=== PATIENT | male | born 1930 | race Caucasian/White ===

== ENCOUNTER 2017-10-06 15:58 | Inpatient (IN) | payer OTHER ==
--- NOTE | 2017-10-06 15:55 | EDPHY ---
H & P Time Seen by Provider: 10/06/17 16:02 Constitutional: Initial Vital Signs Temperature (C) 36.9 C 10/06/17 15:58 Heart Rate 68 10/06/17 15:58 Respiratory Rate 16 10/06/17 15:58 Blood Pressure 174/84 H 10/06/17 15:58 O2 Sat (%) 93 10/06/17 15:58 O2 Delivery Mode Room Air Allergies/Adverse Reactions: sulindac Allergy (Verified 10/06/17 16:14) Home Medications: Medication Instructions Recorded Advair 100/50 (*) 10/06/17 Cyclobenzaprine 10/06/17 Flomax 10/06/17 Losartan Potassium 10/06/17 Boone 5/325 (*) 10/06/17 Proventil Neb 10/06/17 Tylenol 10/06/17 Medical Decision Making - Diagnostics Imaging: Discussed imaging studies w/ call centre supervisor Radiologist, I viewed and interpreted images myself ED Course/Re-evaluation: CHIEF COMPLAINT: Left hip pain HISTORY OF PRESENT ILLNESS: The patient is an 87 y/o male with a recent history of bilateral hip replacement , metastatic prostate cancer, and a recent left hip fracture arriving via EMS complaining of worsening left hip pain. On Monday, 6 days ago, he was diagnosed with a left hip fracture. Today while at rehab he was transferring his weight from one side to the other when he heard a popping sound from his left hip. They re-imaged the hip and saw a displaced left intertrochanteric fracture. Denies chest pain, shortness of breath, abdominal pain, urinary or bowel complaints, fever. He last ate breakfast including 1/2 a cup of raisin bran. REVIEW OF SYSTEMS: A 10 point review of systems was performed and is negative with the exception of the elements mentioned in the history of present illness. PHYSICAL EXAM: HR, BP, O2 Sat, RR. Temp noted General Appearance: Alert, well hydrated, appropriate, and non-toxic appearing. Head: Atraumatic without scalp tenderness or obvious injury Eyes: Pupils equal, round, reactive to light and accommodation, EOMI, no trauma , no injection. Ears: Clear bilaterally, no perforation, normal landmarks Nose: Atraumatic, no rhinorrhea, clear. Throat: There is no erythema or exudates, no lesions, normal tonsils, mucus membranes moist. Neck: Supple, nontender, no lymphadenopathy. Respiratory: No retractions, no distress, no wheezes, and no accessory muscle use. Lungs are clear to auscultation bilaterally. Cardiovascular: Regular rate and rhythm, no murmurs, rubs, or gallops. Bilateral carotid, radial, dorsalis pedis, and posterior tibial pulses intact. Good capillary refill all extremities. Gastrointestinal: Abdomen is soft, nontender, non-distended, no masses, no rebound, no guarding, no peritoneal signs. Musculoskeletal: Left hip tenderness with decreased ROM secondary to pain. Neurological: Alert, appropriate, and interactive. The patient has normal DTRs and non-focal cranial nerves, motor, sensory, and cerebellar exam. Skin: No rashes, good turgor, no nodules on palpation. Past medical history: Metastatic prostate cancer, left intertrochanteric fracture, CHF, hypertension Past surgical history: Bilateral hip replacement Family history: Denies Social history: Lives at [facility], retired, single DIAGNOSTICS/PROCEDURES/CRITICAL CARE TIME: Pelvic and lower extremity CT: Pathologic left intertrochanteric fracture. There is looseness around the prosthesis. DIFFERENTIAL DIAGNOSIS: The differential diagnosis for the patient's hip injury included but was not limited to fracture, ligamentous injury, contusion, muscular strain. MEDICAL DECISION MAKING: The patient is an 87 y/o male with a recent history of a metastatic prostate cancer, left hip fracture arriving via EMS presenting with worsening left hip pain and an intertrochanteric fracture. On exam he has left hip tenderness with decreased ROM secondary to pain. Pelvic and lower extremity CT, labs ordered. 1719: I reviewed patient's CT scans. 1720: Consulted with Dr. Gonzalez, orthopedic surgeon, regarding this patient. He agrees to follow this patient during his admission. 1723: Consulted with Dr. Dodd, hospitalist, who agrees to admit this patient for his pathologic left hip fracture. 1733: Spoke with Dr. Daigle, radiologist, regarding patient's CT findings. There is looseness around the prosthesis in addition to the fracture. 1740: Reassessed patient and discussed imaging findings. He is comfortable with plan for admission. - Data Points Laboratory Results: Laboratory Results 10/06/17 16:20 10/06/17 16:20 10/06/17 10/06/17 10/06/17 16:20 16:20 16:20 WBC 8.73 10^3/uL 10^3/uL (3.80-9.50) RBC 3.97 10^6/uL L 10^6/uL (4.40-6.38) Hgb 12.8 g/dL L g/dL (13.7-17.5) Hct 38.2 % L % (40.0-51.0) MCV 96.2 fL fL (81.5-99.8) MCH 32.2 pg pg (27.9-34.1) MCHC 33.5 g/dL g/dL (32.4-36.7) RDW 12.8 % % (11.5-15.2) Plt Count 219 10^3/uL 10^3/uL (150-400) MPV 9.9 fL fL (8.7-11.7) Neut % (Auto) 72.5 % % (39.3-74.2) Lymph % (Auto) 15.0 % % (15.0-45.0) Cataño % (Auto) 8.6 % % (4.5-13.0) Eos % (Auto) 3.0 % % (0.6-7.6) Baso % (Auto) 0.7 % % (0.3-1.7) Nucleat RBC Rel Count 0.0 % % (0.0-0.2) Absolute Neuts (auto) 6.33 10^3/uL 10^3/uL (1.70-6.50) Absolute Lymphs (auto) 1.31 10^3/uL 10^3/uL (1.00-3.00) Absolute Monos (auto) 0.75 10^3/uL 10^3/uL (0.30-0.80) Absolute Eos (auto) 0.26 10^3/uL 10^3/uL (0.03-0.40) Absolute Basos (auto) 0.06 10^3/uL 10^3/uL (0.02-0.10) Absolute Nucleated RBC 0.00 10^3/uL 10^3/uL (0-0.01) Immature Gran % 0.2 % % (0.0-1.1) Immature Gran # 0.02 10^3/uL 10^3/uL (0.00-0.10) PT 14.5 SEC SEC (12.0-15.0) INR 1.11 (0.83-1.16) APTT 38.3 SEC H SEC (23.0-38.0) Sodium 136 mEq/L mEq/L (135-145) Potassium 4.3 mEq/L mEq/L (3.3-5.0) Chloride 100 mEq/L mEq/L (97-110) Carbon Dioxide 25 mEq/l mEq/l (22-31) Anion Gap 11 mEq/L mEq/L (8-16) BUN 25 mg/dL H mg/dL (7-23) Creatinine 1.2 mg/dL mg/dL (0.7-1.3) Estimated GFR 57 Glucose 98 mg/dL mg/dL (70-100) Calcium 9.2 mg/dL mg/dL (8.5-10.4) Total Bilirubin 0.7 mg/dL mg/dL (0.1-1.4) Conjugated Bilirubin 0.5 mg/dL mg/dL (0.0-0.5) Unconjugated Bilirubin 0.2 mg/dL mg/dL (0.0-1.1) AST 25 IU/L IU/L (17-59) ALT 18 IU/L L IU/L (21-72) Alkaline Phosphatase 58 IU/L IU/L (38-126) Total Protein 6.8 g/dL g/dL (6.3-8.2) Albumin 3.5 g/dL g/dL (3.5-5.0) Lipase 11 IU/L L IU/L (23-300) Departure - Departure Disposition: [facility] Acute Clinical Impression: Hip fracture, left Qualifiers: Encounter type: initial encounter Fracture type: closed Qualified Code(s): S72.002A - Fracture of unspecified part of neck of left femur, initial encounter for closed fracture Condition: Fair Referrals: Patient,NotPresent [Unknown] - As per Instructions Report Scribed for: Db Petit Report Scribed by: Samantha Baker Date of Report: 10/06/17 Time of Report: 16:30
[2017-10-06 16:42] LABS: PLATELET COUNT 219 10^3/uL (150-400)
[2017-10-06 16:46] LABS: INR 1.11 (0.83-1.16); PROTIME(PATIENT) 14.5 SEC (12.0-15.0)
--- NOTE | 2017-10-06 18:48 | GCON ---
[f rep st] CONSULTATION DATE OF CONSULTATION: 10/06/2017 REASON FOR CONSULTATION: Left hip pain. HISTORY RELATIVE TO CONSULTATION: The patient is an 87-year-old limited ambulator with a history of a left total hip arthroplasty in the early . The patient has been having intermittent pain incr easing in frequency, but on the whole has been doing okay. He states that his left hip twisted while at [facility] precipitating an increase in pain. He is having difficulty ambulating secondary to hi s pain. PHYSICAL EXAMINATION: On examination, he holds his hip in slightly outwardly rotated position. His limb lengths and rotation are relatively symmetric. He has pain with flexion of his hip as well as o utward rotation. IMAGING: CT scan demonstrates a previous total hip arthroplasty. There is significant lucency proxi layla with what appears to be a new fracture of the lesser trochanter. ASSESSMENT: 1. Left periprosthetic fracture. 2. Left femoral stem lucency. PLAN: With his history of prostate cancer, it is quite possible that the lucency is from metastases. His family member states that he did have a biopsy previously, which was inconclusive. 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 From a nonoperative standpoint, "letting th is settled down," in hopes of a new fracture becoming less symptomatic would be an option. That micky nails said, his stem appears loose; and, ultimately if symptoms warrant, a revision total hip arthroplast y with a longer stem implant would be the option. Acutely, it is recommended that he limit his weigh t bearing in hopes that this settles down. /[id number]/MODL
[2017-10-06] MEDS ORDERED: ONDANSETRON 4 MG/2 ML VIAL IVP PRN (18:52)
[2017-10-06] MEDS ORDERED: ONDANSETRON DISINTEGRATING 4 MG TAB PO PRN (18:52)
[2017-10-06] MEDS ORDERED: traMADol 50 MG TAB PO PRN (18:52)
[2017-10-06] MEDS ORDERED: ALBUTEROL 60 PUFFS/8 GM MDI IH PRN (18:54)
[2017-10-06] MEDS: ACETAMINOPHEN 500 MG TAB PO SCH ×2 (21:07→23:21)
[2017-10-06] MEDS: CYCLOBENZAPRINE 10 MG TAB PO PRN (21:07)
[2017-10-06] MEDS: FLUTICASONE/SALMETER 250/50MCG DISKUS IH SCH (21:09)
--- NOTE | 2017-10-06 21:29 | GHP ---
[f rep st] HISTORY AND PHYSICAL DATE OF ADMISSION: 10/06/2017 CHIEF COMPLAINT: Left hip pain. HISTORY OF PRESENT ILLNESS: The patient is an 87-year-old male, with a history of bilateral total hi p arthroplasties performed back in the s, who presents to the emergency department with left hip pa in. He underwent revision of his left hip arthroplasty 4 years after the initial surgery. Since laura t time, he has done fairly well. However, approximately 1 week ago, he states he tripped in his kitc hen and suffered a fall onto his left hip. He was admitted to [facility] and both x-ray and C T scans were performed, which showed an abnormality suspicious for possible osteolytic disease. He s tates a biopsy of the bone was obtained, which was negative for a metastatic process. He was then di [facility]arged [facility] [place]. Today, while simply shifting his weight with therapy, he felt a pop in his left hip and is now suffering from increased pain and muscle spasms. Orthopedic Surgery was consult was obtained in the emergency department and no immediate plans are made for surgery. Ho wever, it is possible he may need a longer stem implant as it appears the current stem may be loose. He will be admitted to the ortho unit and Orthopedic Surgery will continue to follow. PAST MEDICAL HISTORY: 1. Metastatic prostate cancer. 2. Left intertrochanteric fracture. 3. History of heart failure. 4. Hypertension. PAST SURGICAL HISTORY: Bilateral hip replacement with left hip revision, all done in the . FAMILY HISTORY: Reviewed and not pertinent. SOCIAL HISTORY: The patient is currently staying at [facility]. He retired. He denies tobacco or a lcohol use. MEDICATIONS: Please see [employer]-completed outpatient medication list. ALLERGIES: He has allergy to Sulindac. REVIEW OF SYSTEMS: A 10-point review of systems is performed, negative except as per HPI. OBJECTIVE: VITAL SIGNS: Temperature 36.8, blood pressure 137/68, heart rate 66, respiratory rate 16 ; he is 90% on room air. GENERAL: Patient is awake, alert, and oriented, in no acute distress. ALINE NT EXAM: Head is atraumatic, normocephalic. Pupils equal, round, react to light. Extraocular movem ents intact. Oropharynx is clear. Mucous membranes are moist. NECK: Supple. There is no JVD. HE ART: Has regular rate and rhythm without murmur. LUNGS: Clear to auscultation bilaterally. ABDOME N: Soft, nondistended, obese, nontender. Normoactive bowel sounds are present. EXTREMITIES: He payne s 1+ bilateral pitting lower extremity edema. NEUROLOGIC EXAM: Grossly nonfocal. LABORATORY DATA: CBC reveals normal white count, hemoglobin 12.8, platelets are 219. INR is 1.11. Basic metabolic panel reveals normal electrolytes, BUN 25, creatinine 1.2. LFTs are normal. Lipase is normal. Pelvis CT shows a pathologic fracture in the intertrochanteric region of the left hip with underlying left total hip arthroplasty as well as an underlying lucent lesion in the intertrochanteric region o f the left hip, which is atypical for prostate carcinoma; loosening or infection could be considered per radiology report. ASSESSMENT AND PLAN: The patient is an 87-year-old male with history of bilateral total hip arthropl asties. He is admitted to the hospital with increasing left hip pain, possibly related to a loose st em in his left hip hardware one week after a fall. 1. Periprosthetic fracture of the left hip. Appreciate Orthopedic Surgery consultation. The plan, for now, is to see if his symptoms improve and, if not, he may undergo surgery for a longer stem impl ant as it seems this stem may be loose, possibly contributing to his symptoms of pain. It is recomme nded he limit weightbearing at this time. We will hold off on PT, OT evaluations until cleared by Or thopedic Surgery. As it does not sound like there is a plan for immediate surgery, patient will be g iven a regular diet, pain control with high-dose scheduled Tylenol, p.r.n. oxycodone, and Flexeril fo r muscle spasms. 2. Hypertension. He was a bit hypertensive on arrival, though currently normotensive. We will cont inue his home losartan. 3. Benign prostatic hypertrophy. Continue Flomax. 4. Asthma. No evidence of acute exacerbation. Continue Advair and p.r.n. albuterol. 5. History of metastatic prostate cancer. A recent bone biopsy of the left femoral stem lucency, do ne at [facility], was negative for metastatic disease. We will need to obtain records to veri fy that and also consider Oncology consult. 6. Deep venous thrombosis prophylaxis. The patient is high risk. Will start Lovenox, which should be held if plans for surgery are made. CODE STATUS: 1. Patient is full code. DISPOSITION: Patient admitted to inpatient status as I anticipate he will require greater than 48 ho urs hospitalization for ongoing management of his periprosthetic hip fracture and acute pain. /[id number]/MODL
[2017-10-06] MEDS: TAMSULOSIN HCL 0.4 MG CAP PO SCH (23:21)
[2017-10-06] MEDS: PATCH REMOVAL 1 EA PATCH TD SCH (23:21)
[2017-10-07] MEDS: oxyCODONE IR 5 MG TAB PO PRN ×2 (05:18→21:25)
[2017-10-07] MEDS: CYCLOBENZAPRINE 10 MG TAB PO PRN ×2 (05:18→21:25)
--- NOTE | 2017-10-07 07:52 | PDMN ---
Medical Necessity Medical necessity: GRG Musculoskeletal disease- periprosthetic fracture of L hip poss sgy pending, PT will receive PT,OT awaiting further eval of hip fx. pt is 87 with hx met. prostate Ca., - anticipate > 2 MN ongoing med nec care.
[2017-10-07] MEDS: FLUTICASONE/SALMETER 250/50MCG DISKUS IH SCH ×2 (09:48→21:38)
[2017-10-07] MEDS: LIDOCAINE 4%/MENTHOL 1% PATCH TD SCH (10:18)
[2017-10-07] MEDS: ENOXAPARIN 40 MG/0.4 ML SYR SC SCH (10:18)
[2017-10-07] MEDS: ACETAMINOPHEN 500 MG TAB PO SCH ×3 (10:19→21:25)
[2017-10-07] MEDS: TAMSULOSIN HCL 0.4 MG CAP PO SCH ×2 (10:21→21:23)
[2017-10-07] MEDS: LOSARTAN POTASSIUM 50 MG TAB PO SCH (10:21)
--- NOTE | 2017-10-07 10:44 | HOSPPROG ---
Hospitalist Progress Note Assessment/Plan: 87y male with c/o hip pain. First encounter, chart reviewed. #Periprosthetic left hip fx -wait -conservative care for now -appreciate Dr Gonzalez consult -suspect he will end up needing surgery #Pain -cont muscle relaxers -support #HTN -stable -no changes currently #Hx met prostate CA -no intervention #Asthma -stable -cont advair #Dispo -unclear -will need supportive care in hospital -possible surgery Subjective: Still having pain in left hip. Feels better then yesterday. Objective: Vital Signs Temp Pulse Resp BP Pulse Ox 36.9 C 64 16 143/70 H 96 10/07/17 08:00 10/07/17 08:00 10/07/17 08:00 10/07/17 08:00 10/07/17 08:00 10/06/17 10/07/17 10/08/17 05:59 05:59 05:59 Intake Total 150 Output Total 500 Balance -500 150 PT 14.5 SEC (12.0-15.0) 10/06/17 16:20 INR 1.11 (0.83-1.16) 10/06/17 16:20 - Physical Exam Constitutional: appears nourished, obese, uncomfortable Eyes: PERRL, anicteric sclera, EOMI Ears, Nose, Mouth, Throat: moist mucous membranes, hearing normal, ears appear normal Cardiovascular: No JVD, No tachycardia, No edema Respiratory: no respiratory distress, no rales or rhonchi, reduced air movement Gastrointestinal: normoactive bowel sounds, No tenderness, No ascites Skin: warm, normal color, No mottled Musculoskeletal: joint tenderness, pain with ROM, generalized weakness Neurologic: AAOx3 Psychiatric: interacting appropriately, not anxious, not encephalopathic, thought process linear ICD10 Worksheet Patient Problems: Problems Problem Status Onset Hip fracture, left Acute
--- NOTE | 2017-10-07 18:16 | ASMTCMCOM ---
CM Note CM Note Notes: Reviewed chart. Pt admitted from [facility] for hip pain. Pt diagnosed with a left hip fracture. History includes prostate cancer, heart failure, HTN, bilat hip replacement. Pt is retired and lives alone. Pt has been at [facility] jail rehab for the past week. Approximately one week prior to admit he tripped in his kitchen and fell. He was seen and treated at [facility]. Discharge needs remain unclear. Anticipate pt will likely return to [facility] for additional rehab when medically stable. CM will continue to follow. Current Discharge Plan: [facility] SNF Date Signed: 10/07/2017 06:15 PM Electronically Signed By:Hafsa Leon RN
--- NOTE | 2017-10-07 20:54 | SOAPPROG ---
SOAP Progress Note Assessment/Plan: Assessment: L lesser trochanter (periprosthetic) fx Pain some better today, worse with movement Tender L groin Pain with hip ROM Plan: Hopefully acute fracture will "settle down" from a pain standpoint SNF transfer when ready If symptoms persist , revision MIGUELINA option 10/07/17 20:51 Objective: Vital Signs Temp Pulse Resp BP Pulse Ox 36.8 C 68 18 152/57 H 94 10/07/17 19:28 10/07/17 19:28 10/07/17 19:28 10/07/17 19:28 10/07/17 19:28 10/06/17 10/07/17 10/08/17 05:59 05:59 05:59 Intake Total 450 Output Total 500 400 Balance -500 50 PT 14.5 SEC (12.0-15.0) 10/06/17 16:20 INR 1.11 (0.83-1.16) 10/06/17 16:20 ICD10 Worksheet Patient Problems: Problems Problem Status Onset Hip fracture, left Acute
[2017-10-07] MEDS: PATCH REMOVAL 1 EA PATCH TD SCH (21:26)
[2017-10-08] MEDS: LIDOCAINE 4%/MENTHOL 1% PATCH TD SCH (09:48)
[2017-10-08] MEDS: ACETAMINOPHEN 500 MG TAB PO SCH ×3 (09:49→22:53)
[2017-10-08] MEDS: TAMSULOSIN HCL 0.4 MG CAP PO SCH ×2 (09:50→20:19)
[2017-10-08] MEDS: LOSARTAN POTASSIUM 50 MG TAB PO SCH (09:50)
[2017-10-08] MEDS: ENOXAPARIN 40 MG/0.4 ML SYR SC SCH (09:50)
[2017-10-08] MEDS: FLUTICASONE/SALMETER 250/50MCG DISKUS IH SCH ×2 (09:53→21:38)
[2017-10-08] MEDS ORDERED: LACTULOSE 20 GM/30 ML UDCUP PO PRN (10:51)
[2017-10-08] MEDS ORDERED: POLYETHYLENE GLYCOL 3350 17 GM PKT PO PRN (10:51)
[2017-10-08] MEDS ORDERED: BISACODYL 10 MG SUPP PR PRN (10:51)
[2017-10-08] MEDS ORDERED: MAGNESIUM HYDROXIDE 30 ML UDCUP PO PRN (10:51)
[2017-10-08] MEDS: SENNOSIDES/DOCUSATE SODIUM TAB PO SCH ×2 (12:08→20:19)
--- NOTE | 2017-10-08 13:12 | HOSPPROG ---
Hospitalist Progress Note Assessment/Plan: 87y male with c/o hip pain. D/W Dr Gonzalez. #Periprosthetic left hip fx -pt wants surgery, D/W Dr Gonzalez, will have to be done at the [facility] -transfer pt to [facility] #Pain -cont muscle relaxers -support #HTN -stable -no changes currently #Hx met prostate CA -no intervention #Asthma -stable -cont advair #Dispo -D/W Daughter, will transfer pt to [facility] for surgical intervention -D/W CM -anticipate Monday Subjective: Pain ok. Unable to move without significant pain. Requesting surgery. Objective: Vital Signs Temp Pulse Resp BP Pulse Ox 36.9 C 67 17 124/52 H 94 10/08/17 12:00 10/08/17 12:00 10/08/17 12:00 10/08/17 12:00 10/08/17 12:00 10/07/17 10/08/17 10/09/17 05:59 05:59 05:59 Intake Total 650 Output Total 500 1225 200 Balance -500 -575 -200 PT 14.5 SEC (12.0-15.0) 10/06/17 16:20 INR 1.11 (0.83-1.16) 10/06/17 16:20 - Physical Exam Constitutional: no apparent distress, obese, uncomfortable Eyes: PERRL, anicteric sclera, EOMI Ears, Nose, Mouth, Throat: moist mucous membranes, hearing normal, ears appear normal Cardiovascular: edema, No JVD, No tachycardia Respiratory: no respiratory distress, no rales or rhonchi, reduced air movement Gastrointestinal: normoactive bowel sounds, No tenderness, No ascites, No guarding Skin: warm, normal color, No mottled Musculoskeletal: joint tenderness, pain with ROM, muscular tenderness, generalized weakness Neurologic: AAOx3 Psychiatric: interacting appropriately, not anxious, not encephalopathic, thought process linear ICD10 Worksheet Patient Problems: Problems Problem Status Onset Hip fracture, left Acute
[2017-10-08] MEDS: CYCLOBENZAPRINE 10 MG TAB PO PRN (17:31)
--- NOTE | 2017-10-08 19:14 | ASMTCMCOM ---
PORFIRIO Note CM Note Notes: Reviewed chart, spoke with Zena Boyd NP and Flor RN. Per Zena, pt unwilling to return to [facility] following discharge. Pt believes [facility] was responsible for his current fractures. Per Zena, pt in need of surgery; case discussed further with Dr. Gonzalez. Decision made for pt to transfer to [facility] for orthopedic surgery. Current surgical needs fall outside scope of [facility] practice. Without intervention pt has a poor prognosis for healing and recovery. Met with pt to discuss plan of care. Pt adament about having surgery. Pt recognizes his poor prognosis and fears his own mortality. Pt very teary, recounting his "amazing life and his wonderful ." The pt very emotional during conversation. Support and reassurance provided. Met with pt's dghtlula Matos and son-in-law Tad. Updates provided. Family in support of surgery. Pt and family refusing to return to [facility]. Family wishes for pt to transfer to [facility] following discharge from [facility]. Dghtr Shawna requesting CM alert [facility]. Pt previously turned away d/t to lack of bed availability. Call placed to TOYA Rouse at [facility]. Padma alerted to request. Referral sent for [facility] to keep pt on their radar for next couple of weeks. Call received from darin Freitas to transfer to [facility] Monday or Monday. Call received from Theresa at [facility] (doc line specialist) . Per Theresa, [facility] is out of pt's insurance network. Dr. Chávez (orthopedist) has agreed to accept pt for surgery on Monday10/10/17, but [facility] will need to obtain insurance auth from [employer] on Monday10/09/17 on pt's behalf. Per Theresa, insurance auth is [facility] responsibility secondary to hospital being unable to provide surgical options. ALEXIS Munoz, advertising campaign manager of CM and UR team for follow up on Monday. CM to call Annmarie at [facility] with update and for coordination of transfer on Monday. Discharge plan remains unclear. CM will continue to follow. Current Discharge Plan: Transfer to [facility] for orthopedic surgery Date Signed: 10/08/2017 07:08 PM Electronically Signed By:Hafsa Leon RN
[2017-10-08] MEDS: PATCH REMOVAL 1 EA PATCH TD SCH (20:19)
[2017-10-08] MEDS ORDERED: SENNOSIDES/DOCUSATE SODIUM TAB PO SCH (21:00)
--- NOTE | 2017-10-09 06:25 | SOAPPROG ---
MEKHI Progress Note Assessment/Plan: Assessment: L lesser trochanter (periprosthetic) fx Pain some better today, worse with movement Tender L groin Pain with hip ROM Plan: Hopefully acute fracture will "settle down" from a pain standpoint SNF transfer when ready If symptoms persist , revision MIGUELINA option 10/07/17 20:51 10/09/17 06:24 Con't pain L hip limiting ability to get OOB Transfer arranged to [facility] Dr. Chávez for revision MIGUELINA pending insurance authorization Objective: Vital Signs Temp Pulse Resp BP Pulse Ox 36.9 C 67 16 141/75 H 95 10/09/17 00:00 10/09/17 00:00 10/09/17 00:00 10/08/17 15:43 10/09/17 00:00 10/08/17 10/09/17 10/10/17 05:59 05:59 05:59 Intake Total 650 150 Output Total 1225 525 Balance -575 -375 PT 14.5 SEC (12.0-15.0) 10/06/17 16:20 INR 1.11 (0.83-1.16) 10/06/17 16:20 ICD10 Worksheet Patient Problems: Problems Problem Status Onset Hip fracture, left Acute
[2017-10-09 07:58] VITALS: BP 136/70
[2017-10-09] MEDS: LOSARTAN POTASSIUM 50 MG TAB PO SCH (09:11)
[2017-10-09] MEDS: TAMSULOSIN HCL 0.4 MG CAP PO SCH (09:11)
[2017-10-09] MEDS: CYCLOBENZAPRINE 10 MG TAB PO PRN (09:11)
[2017-10-09] MEDS: ENOXAPARIN 40 MG/0.4 ML SYR SC SCH (09:13)
[2017-10-09] MEDS: SENNOSIDES/DOCUSATE SODIUM TAB PO SCH (09:13)
[2017-10-09] MEDS: FLUTICASONE/SALMETER 250/50MCG DISKUS IH SCH (09:22)
[2017-10-09] MEDS: ACETAMINOPHEN 500 MG TAB PO SCH (10:09)
--- NOTE | 2017-10-09 11:12 | HOSPPROG ---
Hospitalist Progress Note Assessment/Plan: 87y male with c/o hip pain. Today is my first #Periprosthetic left hip fx -Transfer arranged to [facility] w Dr. Chávez for revision MIGUELINA pending insurance authorization #Pain -cont muscle relaxers -support #HTN -stable -no changes currently #Hx met prostate CA -no intervention #Asthma -stable -cont advair #Dispo -dc today to , they are aware and Dr Cháevz will receive the patient, he will go to room 854. July, his nurse, will call report to the nurse at . Subjective: Pawel is anxious to be dc today. Objective: Vital Signs Temp Pulse Resp BP Pulse Ox 36.7 C 64 18 136/70 H 94 10/09/17 07:57 10/09/17 07:57 10/09/17 07:57 10/09/17 09:11 10/09/17 07:57 10/08/17 10/09/17 10/10/17 05:59 05:59 05:59 Intake Total 650 150 Output Total 1225 525 300 Balance -575 -375 -300 PT 14.5 SEC (12.0-15.0) 10/06/17 16:20 INR 1.11 (0.83-1.16) 10/06/17 16:20 - Physical Exam Constitutional: not in pain, chronically ill appearing, obese Eyes: PERRL Ears, Nose, Mouth, Throat: hearing normal Cardiovascular: regular rate and rhythym Respiratory: no respiratory distress Skin: warm Musculoskeletal: other (left leg slightly shortened and ext rotated.) Neurologic: AAOx3 Psychiatric: interacting appropriately ICD10 Worksheet Patient Problems: Problems Problem Status Onset Hip fracture, left Acute
[2017-10-09] MEDS: LIDOCAINE 4%/MENTHOL 1% PATCH TD SCH (11:28)
--- NOTE | 2017-10-09 13:22 | GDS ---
[f rep st] DISCHARGE SUMMARY DISCHARGE DIAGNOSES: 1. Periprosthetic left hip fracture. 2. Pain due to this. 3. Hypertension. 4. History of metastatic prostate cancer. 5. Asthma. CONSULTATION: Dr. Gonzalez. BRIEFLY: Pawel Oliveira is an 87-year-old gentleman with a history of bilateral total hip arthroplasties performed in the s. He presented to the emergency department with left hip pain. He underwent a revision of his left hip arthroplasty 4 years after the initial surgery. Since then, he has done pretty well. Approximately a week ago he tripped in his kitchen, suffered a fall onto his left hip. At that time, he was admitted to [facility] and both x-ray and CT scan were performed, which showed an abnormality suspicious for possibly osteolytic disease. Per the patient in, the biopsy of the bone was obtained, was negative for metastatic process and he was [facility]. Prior to this admission he was shifting his weight when he felt a pop out of his left hip. He was seen and evaluated by Dr. Gonzalez. His recommendation was for the patient to go to [facility] and further follow up with Dr. Chávez. I have spoken with the [facility] today. He will go to their orthopedic unit, room 854 and get further care there. HOSPITAL COURSE FOR PROBLEM: 1. Periprosthetic left hip fracture. He will be transferred to [facility] with Dr. Chávez for revision of the MIGUELINA. 2. Pain. Continue muscle relaxers. Overall well controlled. 3. Hypertension, stable. 4. History of metastatic prostate cancer, on no treatment at this time. 5. Asthmatic. Resumed his Advair. DISCHARGE CONDITION: Stable. Blood pressure is 136/70, respiratory rate is 18 , pulse is 64, temperature 36.7 Celsius, O2 saturation on room air 94%. DISCHARGE INSTRUCTIONS: He will be transferred to [facility] by ambulance because he is unable to walk and he will get further care per Dr. Chávez. Greater than 30 minutes discharging and coordinating his care with [facility]. /[id number]/MODL MTDD
--- NOTE | 2017-10-09 14:14 | ASMTLACE ---
LACE Length of stay for Answers: 3 days current admission Acuity / Level of Answers: Yes Care: Did the patient have an inpatient admission? Comorbidities - select Answers: Any tumor (including all that apply lymphoma or leukemia) Congestive heart failure Other Notes: bilat hip replacement w/ revision, HTN # of Emergency department Answers: 1-2 visits in the last 6 months Score: 12 Date Signed: 10/09/2017 02:13 PM Electronically Signed By:DEMARIO Doherty
--- NOTE | 2017-10-09 14:21 | ASMTCMCOM ---
CM Note CM Note Notes: Pt medically stable for transfer to [place] as he requires a higher level of care, an orthopedic surgery with Dr. Chávez. This morning Zena Hawthorne [phone] with [facility] pt does not need insurance authorization since he requires a higher level of care. [facility] arranges pt transfer, he will be in room 854. Stretcher transport arranged for 1330. Emtala form filled out and copies sent with pt. Copy of pt chart and films sent with pt. RN July report. Pt family updated. Date Signed: 10/09/2017 02:20 PM Electronically Signed By:DEMARIO Doherty
--- NOTE | 2017-10-09 14:23 | ASDISCHSUM ---
Discharge Information Plan Status:Acute Transfer Medically Cleared to Leave: Discharge Date:10/09/2017 01:13 PM CM D/C Disposition:[facility] ADT D/C Disposition:[facility] Projected Discharge Date:10/14/2017 11:00 AM Transportation at D/C:ALS/BLS Discharge Delay Reason: Follow-Up Date:10/14/2017 11:00 AM Discharge Slot: Final Diagnosis: Placement Information Referral Type:*Penitentiary/SNF Referral ID:[id number] Provider Name: Address 1: Phone Number: Address 2: Fax Number: City: [place]: State: Patient Contact Information Contact Name:OMAYRA Relationship:Daughter Address: Work Phone: City: [facility] Phone: [facility] Code: Email: Financial Information Financial Class:Medicare Advantage Plans Primary Plan Desc:[facility] ADVANTAGE PLANS Primary Plan Number:[id number] Secondary Plan Desc: Secondary Plan Number: Assessment Information LACE LACE Length of stay for Answers: 3 days current admission Acuity / Level of Answers: Yes Care: Did the patient have an inpatient admission? Comorbidities - select Answers: Any tumor (including all that apply lymphoma or leukemia) Congestive heart failure Other Notes: bilat hip replacement w/ revision, HTN # of Emergency department Answers: 1-2 visits in the last 6 months Score: 12 Date Signed: 10/09/2017 02:13 PM Electronically Signed By:DEMARIO Doherty [facility] CM Progress Note CM Note CM Note Notes: Reviewed chart. Pt admitted from [facility] for hip pain. Pt diagnosed with a left hip fracture. History includes prostate cancer, heart failure, HTN, bilat hip replacement. Pt is retired and lives alone. Pt [facility]. Approximately one week prior to admit he tripped in his kitchen and fell. He was seen and treated at [facility]. Discharge needs remain unclear. Anticipate pt will likely return to [facility] for additional rehab when medically stable. CM will continue to follow. Current Discharge Plan: [facility] SNF Date Signed: 10/07/2017 06:15 PM Electronically Signed By:Hafsa Leon RN [facility] CM Progress Note CM Note CM Note Notes: Reviewed chart, spoke with Zena Boyd NP and ОЛЕГ Ray. Per Zena, pt unwilling to return to [facility] following discharge. Pt believes [facility] was responsible for his current fractures. Per Zena, pt in need of surgery; case discussed further with Dr. Gonzalez. Decision made for pt to transfer to [facility] for orthopedic surgery. Current surgical needs fall outside scope of [facility] practice. Without intervention pt has a poor prognosis for healing and recovery. Met with pt to discuss plan of care. Pt adament about having surgery. Pt recognizes his poor prognosis and fears his own mortality. Pt very teary, recounting his "amazing life and his wonderful ." The pt very emotional during conversation. Support and reassurance provided. Met with pt's solange Matos and son-in-law Tad. Updates provided. Family in support of surgery. Pt and family refusing to return to [facility]. Family wishes for pt to transfer to [facility] following discharge from [facility]. Solange Matos requesting CM alert [facility]. Pt previously turned away d/t to lack of bed availability. Call placed to TOYA Rouse at [facility]. Padma alerted to request. Referral sent for [facility] to keep pt on their radar for next couple of weeks. Call received from darin Freitas to transfer to [facility] Monday or Monday. Call received from Theresa at [facility] (doc line specialist) . Per Theresa, [facility] is out of pt's insurance network. Dr. Chávez (orthopedist) has agreed to accept pt for surgery on Monday10/10/17, but [facility] will need to obtain insurance auth from [employer] on Monday10/09/17 on pt's behalf. Per Theresa, insurance auth is [facility] responsibility secondary to hospital being unable to provide surgical options. M aline Munoz, catering sales manager of CM and UR team for follow up on Monday. CM to call Annmarie at [facility] with update and for coordination of transfer on Monday. Discharge plan remains unclear. CM will continue to follow. Current Discharge Plan: Transfer to [facility] for orthopedic surgery Date Signed: 10/08/2017 07:08 PM Electronically Signed By:Hafsa Leon RN [facility] CM Progress Note CM Note CM Note Notes: Pt medically stable for transfer to [facility] as he requires a higher level of care, an orthopedic surgery with Dr. Chávez. This morning Zena Hawthorne [phone] with [employer] reports pt does not need insurance authorization since he requires a higher level of care. [facility] arranges pt transfer, he will be in room 854. Stretcher transport arranged for 1330. Emtala form filled out and copies sent with pt. Copy of pt chart and films sent with pt. ОЛЕГ July called report. Pt family updated. Date Signed: 10/09/2017 02:20 PM Electronically Signed By:DEMARIO Doherty Intervention Information
== END 2017-10-09 13:13 | disposition short-term general hospital (02) | DRG 561 ==
LOC: F3N 19:22
PROVIDERS: ADMIT Hospitalist; ATTEND Hospitalist
DX: M97.02XA Periprosthetic fracture around internal prosthetic left hip joint, initial encounter (principal); W19.XXXA Unspecified fall, initial encounter; Z96.643 Presence of artificial hip joint, bilateral; I10 Essential (primary) hypertension; J45.909 Unspecified asthma, uncomplicated; Z85.46 Personal history of malignant neoplasm of prostate
CPT/HCPCS: J1650